=== PATIENT | female | born 1980 | race Caucasian/White ===

== ENCOUNTER 2023-11-17 12:30 | Emergency (ER) | payer MEDICAID, SELFPAY ==
[2023-11-17 12:33] VITALS: BP 109/76; PULSE 64; RESP 18; TEMP 36.1; O2SAT 98; BMI 30.3
--- NOTE | 2023-11-17 12:56 | EDS_ITS ---
HPI History of Present Illness Chief Complaint: Cold Sx Narrative Narrative: 43-year-old female past medical history of lupus presents at the direction of her primary care provider for mono testing. She relates history that her symptoms began on , 4 days ago. She may have had a fever but had sore throat and now she has laryngitis. She states she went to urgent care on Saturday, and was swabbed for COVID, influenza, and RSV and was negative even for strep throat. She went to the [place] ER yesterday and was reswabbed and once again was negative. She is concerned because she lost her voice, and she had nausea and vomiting along with headaches. She states that she called her primary care provider, Dr. Garrison, who told her that she needed to have her metabolic panel and CBC checked along with a Monospot test. She went to urgent care again, but was told that they are unable to do lab work. Hence, she came to the emergency department for testing and continued sore throat with multiple somatic symptoms. [facility] Medical History Lupus Allergy/AdvReac Type Severity Reaction Status Date / Time montelukast (From Singulair) AdvReac Intermediate RASH Verified 11/17/23 12:33 ROS ROS ED ROS Narrative Constitutional: Positive fever, no chills. HEENT: Positive sore throat. No neck pain. No loss of vision. No rhinorrhea. Cardiovascular: No chest pain. No palpitations. No pedal edema. Respiratory: No cough, no shortness of breath. Abdominal: No abdominal pain. Positive nausea and vomiting Genitourinary: No dysuria. No hematuria. Musculoskeletal: No myalgias. No arthralgias. Neurologic: Positive headaches. No dizziness. No lightheadedness. Skin: No rash. No change in color. Psychiatric: No depression. No anxiety. EXAM Physical Exam Narrative Exam Narrative: Afebrile. Vital signs noted. Nontoxic-appearing. HEENT: Normocephalic. Atraumatic. PERRL, EOMI. Neck soft and supple. No point tenderness or step off. Mild pharyngeal erythema. Positive exudate. Airway patent. No drooling or trismus. No meningismus. Hoarse voice. Cardiovascular: Regular rate and rhythm. No murmurs, rubs, or gallops appreciated. Respiratory: No tachypnea. Lungs clear to auscultation bilaterally. Gastrointestinal: Abdomen soft, nontender, with normoactive bowel sounds. No rebound or guarding. Neurological: Awake. Alert. Nonfocal, nonlateralizing. Skin: No rash. Normal color. No pallor. Musculoskeletal: No pedal edema. Full range of motion extremities. Const Vital Signs: 11/17/23 12:33 Temperature 96.9 F L Temperature Source Temporal Pulse Rate 64 Respiratory Rate 18 Blood Pressure 109/76 Blood Pressure Mean 87 Pulse Ox 98 MDM MDM MDM Narrative Medical decision making narrative: Differential diagnosis includes but not limited to gastritis versus mononucleosis versus other viral pharyngeal infection causing laryngitis. I have low concern for any retropharyngeal abscess or airway obstruction. Pulse ox 98% on room air without evidence of hypoxia. She was bolused normal saline 1 L intravenously and CBC, and CMP were checked as well as Monospot. I have low concern for pancreatitis based on her history and physical. I reviewed her laboratory work and she has a normal white count of 5.3, hemoglobin 14.8, platelet count 185. I reviewed her CMP and her chloride is slightly elevated at 109 which I think is nonspecific with a BUN of 19 and creatinine 0.78. She will be bolused IV fluids. Her LFTs are grossly unremarkable. Monoscreen is negative. At this point in time, we will left the IV fluids running, but she would like discharge. I feel she can be discharged to follow-up with her primary care provider. Return instructions to the emergency department were reviewed. Disposition is discharged home in stable condition. History & Record Review Discussion w/independent historian: Patient Lab Data Attestation: I reviewed the patient's lab results. Labs: Laboratory Results - last 24 hr 11/17/23 13:01 WBC 5.3 RBC 4.64 Hgb 14.8 Hct 43.8 MCV 94.4 MCH 31.9 MCHC 33.8 RDW Std Deviation 42.1 RDW Coeff of Kamille 12.2 Plt Count 185 MPV 9.7 Immature Gran % (Auto) 0.400 Neut % (Auto) 59.1 Lymph % (Auto) 26.7 [place] % (Auto) 10.0 Eos % (Auto) 3.0 Baso % (Auto) 0.8 Absolute Neuts (auto) 3.1 Absolute Lymphs (auto) 1.41 Nucleated RBC % 0 Sodium 137 Potassium 4.5 Chloride 109 H Carbon Dioxide 25.0 Anion Gap 3 L BUN 19 H Creatinine 0.78 Estim Creat Clear Calc 108.01 Est GFR (MDRD) Af Amer 105 Est GFR (MDRD) Non-Af 86 BUN/Creatinine Ratio 24.4 H Glucose 99 Calcium 9.2 Total Bilirubin 0.20 AST 20 ALT 37 Alkaline Phosphatase 61 Total Protein 6.9 Albumin 3.4 Globulin 3.5 Albumin/Globulin Ratio 1.0 Monoscreen Negative Discharge Plan Triage Chief Complaint: Cold Sx ED Provider: Victor M Cervantes Dx/Rx/DC Orders Clinical Impression: Pharyngitis, Laryngitis Instructions: ED Laryngitis, ED Pharyngitis, Viral Primary Care Provider: Al Garrison Referrals: Al Garrison MD [Primary Care Provider] - 3-5 Days if not improving Activity Restrictions/Additional Instructions: Drink plenty of oral fluids. Tylenol or ibuprofen as needed for pain or fever. Return with increased difficulty swallowing, new or worsening symptoms. Print Language: Welsh Disposition Disposition: Home, Self Care
[2023-11-17] MEDS: 0.9% Normal Saline (1000mL) 1,000 ML 999 ML IV (12:59)
[2023-11-17] MEDS: Ondansetron 4 MG/2 ML Vial IV (13:00)
[2023-11-17 13:07] LABS: Absolute Lymphocyte Count 1.41 X10^3/uL (0.83-4.51); Absolute Neutrophil Count 3.1 X10^3/uL (2.0-7.7); Basophil# 0.04 X10^3/uL; Basophil% 0.8 % (0-1); Eosinophil# 0.16 X10^3/uL; Hematocrit 43.8 % (37-47); Hemoglobin 14.8 g/dL (12.0-15.0); Lymphocyte # 1.41 X10^3/ul (0.83-4.51); Lymphocyte % 26.7 % (19-41); Mean Corp Hgb Conc 33.8 g/dL (32-36); Mean Corpuscular Hgb 31.9 pg (27.0-32.0); Mean Corpuscular Volume 94.4 fL (81-99); Mean Platelet Vol. 9.7 fl (6.2-12.0); Monocyte# 0.53 X10^3/uL; NRBC Flagged by Analyzer 0 % (0-5); Neutrophil # 3.12 X10^3/uL (2.7-7.7); Neutrophil % 59.1 % (47-70); Platelet Count 185 K/mm3 (150-450); RBC Distribution Width CV 12.2 % (11.6-14.6); RBC Distribution Width SD 42.1 fl (35.1-43.9); Red Blood Count 4.64 M/mm3 (4.2-5.4); White Blood Count 5.3 K/mm3 (4.4-11.0)
[2023-11-17 13:24] LABS: AST(SGOT) 20 U/L (15-37); Alanine Aminotransfer ALT/SGPT 37 U/L (13-56); Albumin, Serum 3.4 g/dL (3.2-5.0); Alkaline Phosphatase 61 U/L (45-117); Anion Gap 3 (5-15); BUN 19 mg/dL (7-18); BUN/Creat Ratio 24.4 RATIO (10-20); Calcium,Total 9.2 mg/dL (8.5-10.1); Chloride 109 mmol/L (98-107); Creatinine, Serum 0.78 mg/dL (0.55-1.02); EST Glomerular Filtration Rate 86 mL/min (>60); Est Glom Filt Rate - Afr Amer 105 mL/min (>60); Estimated Creatinine Clearance 108.01 ml/min; Globulin 3.5 g/dL (2.2-4.2); Glucose 99 mg/dL (74-106); Potassium 4.5 mmol/L (3.5-5.1); Protein, Total 6.9 g/dL (6.4-8.2); Sodium Level 137 mmol/L (136-145)
[2023-11-17 13:30] LABS: Internal QC Validated? YES +Cl - CLEAR BKGD; Monotest Negative (Negative); Record Kit Lot#, Mono 13241033
[2023-11-17 13:54] VITALS: BP 97/68; PULSE 55; RESP 16; TEMP 36.7; O2SAT 98
--- NOTE | 2023-11-17 14:06 | ED.RN ---
approx 700 ml of IV fluids given. pt would like to go home. is able to take PO
== END 2023-11-17 14:07 | disposition home or self-care (01) ==
PROVIDERS: Emergency Provider Emergency Medicine; PCP Internal Medicine; Visit Provider Emergency Medicine
DX: J04.0 Acute laryngitis (principal); J02.9 Acute pharyngitis, unspecified
CPT/HCPCS: 80053; 85025; 86308; 96361; 96374; 99282; J7030; A4216; J2405